=== PATIENT | male | born 1970 | race Caucasian/White ===

== ENCOUNTER 2017-04-11 21:48 | Observation (INO) | payer BC ==
[2017-04-11 23:05] LABS: HEMOGLOBIN 13.3 gm/dl (14.0-17.5); RED BLOOD COUNT 4.81 M/UL (4.20-5.50); WHITE BLOOD COUNT 10.3 K/UL (4.5-11.0)
[2017-04-11 23:23] LABS: BUN/CREATININE RATIO 20 (0-10)
== END 2017-04-12 09:36 | disposition home or self-care (01) ==
LOC: ER1 21:48 → ZEROF 04-12 02:00
PROVIDERS: Family Medicine; ADMIT Internal Medicine
DX: R07.9 Chest pain, unspecified (principal); R05 Cough; M51.36 Other intervertebral disc degeneration, lumbar region; E11.9 Type 2 diabetes mellitus without complications; I10 Essential (primary) hypertension; G47.33 Obstructive sleep apnea (adult) (pediatric); Z79.84 Long term (current) use of oral hypoglycemic drugs; Z79.899 Other long term (current) drug therapy; Z87.891 Personal history of nicotine dependence
CPT/HCPCS: 36415; 71010; 80053; 80061; 82550; 82553; 83036; 83874; 84484; 85025; 93005; 96361; 96374; 96375; 99285; G0378; J1200; J1956; J2765; J7030

== ENCOUNTER 2022-04-27 12:03 | Emergency (ER) | payer OTHER ==
[~2022-04-27 12:03] MED LIST: ALTOPREV40 MG PO; ECOTRIN81 MG PO; ELAVIL 10 MG TA10 MG PO; HYDROCHLOROTHIA25 MG PO; JANUVIA100 MG PO; NEURONTIN 300300 MG PO; OMEPRAZOLE20 MG PO; PROZAC40 MG PO; STEGLATRO5 MG PO; VIBRAMYCIN100 MG PO; ZANAFLEX2 MG PO; ZESTRIL40 MG PO
[2022-04-27 12:57] LABS: RED BLOOD COUNT 5.47 M/UL (4.20-5.50); WHITE BLOOD COUNT 9.3 K/UL (4.5-11.0)
[2022-04-27 13:17] LABS: BUN/CREATININE RATIO 20 (0-10)
[2022-04-27] MEDS ORDERED: VIBRAMYCIN 100100 MG PO (14:38)
[2022-04-29 03:02] LABS: CANDIDA ALBICANS Not Detected (Negative); CANDIDA KRUSEI Not Detected (Negative); CANDIDA TROPICALIS Not Detected (Negative); ESCHERICHIA COLI Not Detected (Negative); HAEMOPHILUS INFLUENZAE Not Detected (Negative); KLEBSIELLA OXYTOCA Not Detected (Negative); KLEBSIELLA PNEUMONIAE Not Detected (Negative); KPC-CARBAPENEM-RESISTANCE GENE Not Detected (Negative); PROTEUS Not Detected (Negative); PSEUDOMONAS AERUGINOSA Not Detected (Negative); SERRATIA MARCESANS Not Detected (Negative); STAPHYLOCOCCUS AUREUS Not Detected (Negative); STREP AGALACTIAE (GROUP B) Not Detected (Negative); STREP PYOGENES (GROUP A) Not Detected (Negative); STREPTOCOCCUS Not Detected (Negative); vanA/B (VANCOMYCIN RESIST GENE Not Detected (Negative)
[2022-04-29 03:05] LABS: STAPHYLOCOCCUS DETECTED (Negative)
== END 2022-04-27 16:00 | disposition home or self-care (01) ==
LOC: ER1 12:03
PROVIDERS: Physician Assistant
DX: J18.9 Pneumonia, unspecified organism (principal); F17.200 Nicotine dependence, unspecified, uncomplicated; E10.65 Type 1 diabetes mellitus with hyperglycemia; I25.2 Old myocardial infarction; Z79.82 Long term (current) use of aspirin; Z79.899 Other long term (current) drug therapy
CPT/HCPCS: 36600; 70450; 71045; 80053; 81001; 82550; 82553; 82803; 82962; 83605; 84439; 84443; 84484; 85025; 87040; 87150; 93005; 96374; 99285; G0480; J0696

== ENCOUNTER → 2022-05-11 | Outpatient (CLI) | payer OTHER ==
[~2022-05-11] MED LIST changes: +VIBRAMYCIN 100100 MG PO
[2022-05-11 10:52] LABS: HEMOGLOBIN 16.6 gm/dl (14.0-17.5); RED BLOOD COUNT 5.67 M/UL (4.20-5.50)
[2022-05-11 11:15] LABS: BUN/CREATININE RATIO 20 (0-10)
[2022-05-12 08:14] LABS: CHOLESTEROL, TOTAL 130 mg/dL (100-199); HDL CHOLESTEROL 25 mg/dL (>39); LDL CHOLESTEROL CALC 71 mg/dL (0-99); LDL/HDL RATIO 2.8 ratio (0.0-3.6); T. CHOL/HDL RATIO 5.2 ratio (0.0-5.0); TRIGLYCERIDES 203 mg/dL (0-149)
== END ==
LOC: LAB 10:22
PROVIDERS: Family Medicine
DX: E78.2 Mixed hyperlipidemia (principal); R78.81 Bacteremia
CPT/HCPCS: 36415; 80053; 80061; 83735; 85027; 87040

== ENCOUNTER → 2022-06-01 | Outpatient (CLI) | payer OTHER | LOC: SLEEP 14:15 | DX: G47.33 Obstructive sleep apnea (adult) (pediatric) (principal) | CPT/HCPCS: 95811 ==